=== PATIENT | female | born 1990 | race Caucasian/White ===

== ENCOUNTER 2019-02-25 12:33 | Observation (INO) | payer BC ==
[2019-02-25 13:19] VITALS: BP 125/64; PULSE 94; RESP 16; TEMP 97.9
[2019-02-25] MEDS ORDERED: METHYLERGONOVINE MALEATE 0.2 MG/ML SOL IM PRN (13:30)
[2019-02-25] MEDS ORDERED: OXYTOCIN 10000 MU/ML SOL IM PRN (13:30)
[2019-02-25] MEDS ORDERED: LACTATED RINGERS 1,000 ML IV PRN (13:30)
[2019-02-25] MEDS ORDERED: SODIUM CHLORIDE 0.9% FLUSH 10 ML SOL IV PRN (13:30)
[2019-02-25] MEDS ORDERED: MEPIVACAINE HCL 1% MPF 30 ML/VIAL SOL INFIL PRN (13:30)
[2019-02-25] MEDS ORDERED: FENTANYL 100MCG/2ML SOL IV PRN (13:30)
[2019-02-25] MEDS ORDERED: SODIUM CHLORIDE 0.9% FLUSH 10 ML SOL IV SCH (13:30)
[2019-02-25] MEDS ORDERED: CARBOPROST 250 MCG/ML SOL IM PRN (13:30)
== END 2019-02-25 14:00 | disposition home or self-care (01) ==
LOC: OB 12:33
PROVIDERS: ADMIT Family Medicine; ATTEND Family Medicine
DX: O47.9 False labor, unspecified (principal)
CPT/HCPCS: 59025; 84112

== ENCOUNTER 2019-02-26 02:45 | Inpatient (IN) | payer BC ==
[2019-02-26] MEDS ORDERED: CARBOPROST 250 MCG/ML SOL IM PRN (03:21)
[2019-02-26] MEDS ORDERED: METHYLERGONOVINE MALEATE 0.2 MG/ML SOL IM PRN (03:21)
[2019-02-26] MEDS ORDERED: FENTANYL 100MCG/2ML SOL IV PRN (03:21)
[2019-02-26] MEDS ORDERED: OXYTOCIN 10000 MU/ML SOL IM PRN (03:21)
[2019-02-26] MEDS ORDERED: MEPIVACAINE HCL 1% MPF 30 ML/VIAL SOL INFIL PRN (03:21)
[2019-02-26] MEDS: SODIUM CHLORIDE 0.9% FLUSH 10 ML SOL IV SCH ×3 (03:45→22:12)
[2019-02-26 05:28] LABS: BASOPHILS % (AUTO) 0 % (0-3); EOSINOPHILS % (AUTO) 2 % (0-9); HEMATOCRIT 37 % (35-47); HEMOGLOBIN 12.7 gm/dl (12.0-15.5); LYMPHOCYTES % (AUTO) 22.2 % (10-50); MEAN CORPUSCULAR HEMOGLOBIN 31.2 pg (27.0-32.0); MEAN CORPUSCULAR VOLUME 92 fL (81-99); MONOCYTES % (AUTO) 7.1 % (0-12); NEUTROPHILS % (AUTO) 68.2 % (37-80)
[2019-02-26] MEDS ORDERED: ROPIVACAINE HYDROCHLORIDE 5 MG/ML SOL ONE (16:18)
[2019-02-26] MEDS ORDERED: FENTANYL 250 MCG/ 5ML SOL ONE (16:20)
[2019-02-26] MEDS: SODIUM CHLORIDE 0.9% FLUSH 10 ML SOL IV PRN ×2 (18:04→20:58)
[2019-02-26] MEDS: LACTATED RINGERS 1,000 ML IV PRN ×2 (20:57→21:28)
[2019-02-26] MEDS ORDERED: DIPHENHYDRAMINE 50 MG/ML SOL IV PRN (21:19)
[2019-02-26] MEDS ORDERED: EPHEDRINE SULFATE 50 MG/ML SOL IV PRN (21:19)
[2019-02-26] MEDS ORDERED: NALOXONE HYDROCHLORIDE 0.4 MG/ML SOL IV PRN (21:19)
[2019-02-26] MEDS ORDERED: NALBUPHINE HCL 20 MG/ML SOL IV PRN (21:19)
[2019-02-26] MEDS: LACTATED RINGERS 1,000 ML IV SCH ×2 (22:02→22:12)
[2019-02-27] MEDS ORDERED: TERBUTALINE SULFATE 1 MG/ML SOL SC PRN (05:48)
[2019-02-27] MEDS ORDERED: LACTATED RINGERS 1,000 ML IV SCH (06:00)
[2019-02-27] MEDS ORDERED: OXYTOCIN 10000 MU/ML 20,000 MU in LACTATED RINGERS 1,000 ML IV SCH (06:00)
[2019-02-27] MEDS ORDERED: OXYTOCIN 10000 MU/ML SOL ONE (06:05)
[2019-02-27] MEDS ORDERED: LACTATED RINGERS 1,000 ML ONE (06:05)
[2019-02-27] MEDS: LACTATED RINGERS 1,000 ML IV SCH ×2 (06:28→20:43)
[2019-02-27] MEDS: SODIUM CHLORIDE 0.9% FLUSH 10 ML SOL IV SCH ×3 (06:28→21:32)
[2019-02-27] MEDS ORDERED: BISACODYL 10 MG SUP PR PRN ×2 (13:23→13:58)
[2019-02-27] MEDS ORDERED: BENZOCAINE/MENTHOL 1 SPR TOP PRN (13:23)
[2019-02-27] MEDS ORDERED: APAP/HYDROCODONE 1 EACH TABLET PO PRN (13:23)
[2019-02-27] MEDS ORDERED: ACETAMINOPHEN 325 MG PO PRN (13:23)
[2019-02-27] MEDS ORDERED: IBUPROFEN 600 MG TAB PO PRN (13:23)
[2019-02-27] MEDS ORDERED: FLEET ENEMA PR PRN ×2 (13:23→13:58)
[2019-02-27] MEDS ORDERED: WITCH HAZEL 1 EA PAD TOP PRN (13:23)
[2019-02-27] MEDS ORDERED: METHYLERGONOVINE MALEATE 0.2 MG TAB PO PRN ×2 (13:23→13:58)
[2019-02-27] MEDS ORDERED: TEMAZEPAM 15MG 15 MG CAP PO PRN ×2 (13:23→13:58)
[2019-02-27] MEDS ORDERED: LACTATED RINGERS 500 ML IV ONE (14:15)
[2019-02-27] MEDS ORDERED: LACTATED RINGERS 1,000 ML IV ONE (15:10)
[2019-02-27 15:32] LABS: HEMATOCRIT 29 % (35-47); HEMOGLOBIN 9.9 gm/dl (12.0-15.5); MEAN CORPUSCULAR HEMOGLOBIN 31.6 pg (27.0-32.0); MEAN CORPUSCULAR HGB CONC 34.7 gm/dl (32.0-36.0); MEAN CORPUSCULAR VOLUME 91 fL (81-99)
[2019-02-27] MEDS: IBUPROFEN 600 MG TAB PO PRN ×2 (16:02→22:51)
[2019-02-27 16:13] LABS: BAND NEUTROPHILS % (MANUAL) 6 %; BASOPHILS % (MANUAL) 0 % (0-3); EOSINOPHILS % (MANUAL) 0 % (0-9); LYMPHOCYTES % (MANUAL) 8 % (10-50); MONOCYTES % (MANUAL) 6 % (0-12); NEUTROPHILS % (MANUAL) 80 % (37-80); NORMAL RBCS PRESENT; PLATELET MORPHOLOGY COMMENT NORMAL
[2019-02-27] MEDS ORDERED: DOCUSATE SODIUM 100 MG SGL PO SCH (21:00)
[2019-02-27] MEDS: DOCUSATE SODIUM 100 MG SGL PO SCH (21:33)
[2019-02-27] MEDS: WITCH HAZEL 1 EA PAD TOP PRN (22:22)
[2019-02-27] MEDS: BENZOCAINE/MENTHOL 1 SPR TOP PRN (22:22)
[2019-02-28] MEDS: WITCH HAZEL 1 EA PAD TOP PRN ×3 (00:15→22:01)
[2019-02-28] MEDS: SODIUM CHLORIDE 0.9% FLUSH 10 ML SOL IV SCH ×3 (03:49→21:01)
[2019-02-28] MEDS: APAP/HYDROCODONE 1 EACH TABLET PO PRN ×3 (05:01→18:52)
[2019-02-28] MEDS: IBUPROFEN 600 MG TAB PO PRN ×3 (05:01→18:52)
[2019-02-28] MEDS: DOCUSATE SODIUM 100 MG SGL PO SCH ×2 (09:57→21:01)
[2019-02-28] MEDS: FERROUS GLUCONATE 324 MG TABLET PO SCH ×2 (09:57→21:01)
[2019-02-28 10:13] LABS: ABO A
[2019-02-28 10:15] LABS: RH TYPE Negative
[2019-02-28] MEDS ORDERED: LACTOBACILLUS COMBINATION NO 8 PO SCH (18:00)
[2019-02-28] MEDS ORDERED: MULTIVITAMIN2 1 EA TAB PO SCH (21:00)
[2019-02-28] MEDS ORDERED: FOLIC ACID 1 MG TAB PO SCH (21:00)
[2019-02-28] MEDS: BENZOCAINE/MENTHOL 1 SPR TOP PRN (22:02)
[2019-03-01] MEDS: SODIUM CHLORIDE 0.9% FLUSH 10 ML SOL IV SCH ×2 (04:58→12:00)
[2019-03-01] MEDS: IBUPROFEN 600 MG TAB PO PRN (05:11)
[2019-03-01] MEDS ORDERED: POLYETHYLENE GLYCOL 17 GM/1 TBS PDS ONE (08:57)
[2019-03-01] MEDS ORDERED: POLYETHYLENE GLYCOL 17 GM/1 TBS PDS PO SCH (09:00)
[2019-03-01 09:18] VITALS: BP 112/72; PULSE 104; TEMP 98.8
[2019-03-01] MEDS: FERROUS GLUCONATE 324 MG TABLET PO SCH (09:18)
[2019-03-01] MEDS: DOCUSATE SODIUM 100 MG SGL PO SCH (09:18)
[2019-03-01 09:32] VITALS: RESP 20; O2SAT 97
[2019-03-01] MEDS: APAP/HYDROCODONE 1 EACH TABLET PO PRN (11:59)
== END 2019-03-01 13:10 | disposition home or self-care (01) | DRG 560 ==
LOC: OB 02:45
PROVIDERS: ADMIT Family Medicine; ATTEND Family Medicine
PROC: 10E0XZZ Delivery of Products of Conception, External Approach (ICD-10-PCS; principal; 2019-02-27)
PROC: 0KQM0ZZ Repair Perineum Muscle, Open Approach (ICD-10-PCS; 2019-02-27)
PROC: 6A550ZT Pheresis of Cord Blood Stem Cells, Single (ICD-10-PCS; 2019-02-27)
DX: O80 Encounter for full-term uncomplicated delivery (principal); Z37.0 Single live birth; Z3A.40 40 weeks gestation of pregnancy; O72.1 Other immediate postpartum hemorrhage; O90.81 Anemia of the puerperium; O63.0 Prolonged first stage (of labor); O66.5 Attempted application of vacuum extractor and forceps
CPT/HCPCS: 36415; 59025; 85007; 85018; 85025; 85027; 86900; 86901; 94762; J0670; J2590; J2795; J3010; A9270-GY

== ENCOUNTER 2019-03-11 18:10 | Inpatient (IN) | payer BC ==
[2019-03-11] MEDS ORDERED: AMPICILLIN/SULBACTAM 3 GM PDS ONE (19:54)
[2019-03-11] MEDS: AMPICILLIN/SULBACTAM 3 GM PDS 3 GM in SODIUM CHLORIDE 0.9% 100 ML 100 ML IV SCH (20:07)
[2019-03-11] MEDS: SODIUM CHLORIDE 0.9% 1000ML 1,000 ML IV SCH (20:55)
[2019-03-11] MEDS: FERROUS GLUCONATE 324 MG TABLET PO SCH (20:55)
[2019-03-11] MEDS: DOCUSATE SODIUM 100 MG SGL PO SCH (20:55)
[2019-03-11] MEDS: IBUPROFEN 400 MG TAB PO PRN (20:55)
[2019-03-11] MEDS ORDERED: [UNRECOGNIZED DRUG - REMARK] PO SCH (21:00)
[2019-03-12] MEDS: IBUPROFEN 400 MG TAB PO PRN ×3 (02:09→12:58)
[2019-03-12] MEDS ORDERED: SODIUM CHLORIDE 0.9% 100 ML 100 ML IV ONE ×3 (03:12→15:50)
[2019-03-12] MEDS ORDERED: AMPICILLIN/SULBACTAM 3 GM PDS ONE ×3 (03:12→15:48)
[2019-03-12] MEDS: AMPICILLIN/SULBACTAM 3 GM PDS 3 GM in SODIUM CHLORIDE 0.9% 100 ML 100 ML IV SCH ×2 (03:52→12:16)
[2019-03-12] MEDS: SODIUM CHLORIDE 0.9% 1000ML 1,000 ML IV SCH (05:50)
[2019-03-12 07:37] LABS: BASOPHILS % (AUTO) 0 % (0-3); EOSINOPHILS % (AUTO) 2 % (0-9); HEMATOCRIT 29 % (35-47); HEMOGLOBIN 9.5 gm/dl (12.0-15.5); LYMPHOCYTES % (AUTO) 9.4 % (10-50); MEAN CORPUSCULAR HEMOGLOBIN 30.4 pg (27.0-32.0); MEAN CORPUSCULAR HGB CONC 32.7 gm/dl (32.0-36.0); MEAN CORPUSCULAR VOLUME 93 fL (81-99); MONOCYTES % (AUTO) 3.5 % (0-12); NEUTROPHILS % (AUTO) 84.6 % (37-80)
[2019-03-12] MEDS: DOCUSATE SODIUM 100 MG SGL PO SCH (09:00)
[2019-03-12] MEDS: FERROUS GLUCONATE 324 MG TABLET PO SCH (09:00)
[2019-03-12] MEDS ORDERED: ACETAMINOPHEN 500 MG 500 MG TAB PO PRN (14:05)
[2019-03-12 15:34] VITALS: BP 100/61; PULSE 98; RESP 18; TEMP 96.5; O2SAT 96
[2019-03-12] MEDS ORDERED: AMOXIL/CLAVULANATE 400/5 ML PDR PO SCH (18:15)
[2019-03-12] MEDS ORDERED: FOLIC ACID 1 MG TAB PO SCH (21:00)
[2019-03-12] MEDS ORDERED: MULTIVITAMIN2 1 EA TAB PO SCH (21:00)
== END 2019-03-12 19:50 | disposition home or self-care (01) | DRG 561 ==
LOC: ACUTE CARE 18:25
PROVIDERS: ADMIT Family Medicine; ATTEND Family Medicine
DX: O86.4 Pyrexia of unknown origin following delivery (principal); N39.0 Urinary tract infection, site not specified
CPT/HCPCS: 36415; 85025; 87040; 99070; J0295; A9270-GY